=== PATIENT | male | born 1970 | race Caucasian/White ===

== ENCOUNTER 2025-04-05 13:32 | Inpatient (IN) | payer BC ==
[~2025-04-05 13:32] MED LIST: Iopamidol 370 76% 100 ML VIAL ONE
[2025-04-05] MEDS ORDERED: Sodium Bicarb 50 MEQ/50 ML Abboject 8.4% SYRINGE ONE (13:48)
[2025-04-05] MEDS ORDERED: Norepinephrine 8 MG/0.9% NS 250 ML ONE (13:58)
[2025-04-05 14:19] LABS: Hematocrit 45.0 % (42.0-52.0); Hemoglobin 14.2 g/dL (14.0-18.0); Mean Corpuscular Hemoglobin 30.9 pg (27.0-31.0); Mean Corpuscular Volume 97.8 fL (78.0-98.0); Platelet Count 223 10x3/uL (130-400); Red Blood Cell (RBC) Count 4.60 mill/uL (4.70-6.10); White Blood Cell (WBC) Count 27.18 10x3/uL (4.8-10.8)
[2025-04-05 14:26] LABS: ALT (SGPT) 113 U/L (Less than 45); AST (SGOT) 274 U/L (11-34); Albumin 2.3 g/dL (3.1-4.5); Alkaline Phosphatase 97 U/L (40-110); Anion Gap 25 mmol/L (10-20); BUN (Urea Nitrogen) 17 mg/dL (8.4-25.7); Bilirubin, Total 0.2 mg/dL (0.3-1.2); Calc. Creatinine Clearance 0 mL/min (70-130); Calcium 9.8 mg/dL (7.8-10.44); Carbon Dioxide 16 mmol/L (22-29); Chloride 109 mmol/L (98-107); Globulin 2.7 g/dL (2.4-3.5); Glucose 325 mg/dL (70-105); Potassium 3.9 mmol/L (3.5-5.1); Sodium 146 mmol/L (136-145)
[2025-04-05 14:28] LABS: INR-International Normal Ratio 2.1; PTT 83.3 sec (22.9-36.1); Prothrombin Time 23.9 sec (12.0-14.7)
[2025-04-05 14:36] LABS: Nucleated RBC (Manual Ct) 1 % (0); Platelet Adequacy Comment Platelets Normal; Polychromasia SLIGHT = 2-3 cells HPF (0-2); Smudge Cells 15.7 %
[2025-04-05 14:39] LABS: Actual Bicarbonate (HCO3a) 18.9 mEq/L (22-28); Analyzer IN Cardio ER; Base Excess (BEa) -15.3 mEq/L (-2.0 to +3.0); Calcium, Ionized (arterial) 1.40 mmol/L (1.12-1.30); Hematocrit-ABG 46 % (42.0-52.0); Hemoglobin (Hb) 15.6 g/dL (14.0-18.0); Potassium - ABG Lab 3.94 mmol/L (3.70-5.30)
[2025-04-05 14:41] LABS: CO2 Tension 89.4 mmHg (35.0-45.0); O2 Tension (PaO2), arterial 45.0 mmHg (80.0-100.0); pH, Arterial 6.943 (7.35-7.45)
[2025-04-05 14:51] LABS: CAUTI Indications for Culture Alt mental st,lethar; Glucose, Urine (Dipstick) Normal (Negative); Leukocyte 500 Leu/uL (Negative); Protein, Urine (Dipstick) 10 mg/dL (Neg-Trace); Specific Gravity, Urine 1.013 (1.002-1.036); WBC/HPF Greater than 50 HPF (0-3)
[2025-04-05 14:56] LABS: Bacteria/HPF 1+ HPF (None Seen); Sperm/HPF Rare HPF (None Seen)
[2025-04-05 14:57] LABS: Urine Culture Reflex Yes Yes
[2025-04-05] MEDS ORDERED: Cefepime 2 GM VIAL ONE (15:19)
[2025-04-05] MEDS ORDERED: metroNIDAZOLE 500 MG (100 mL) BAG ONE (15:34)
[2025-04-05] MEDS ORDERED: Vancomycin (BATCH) 2.5 GM in Premix 1 BAG IVPB SCH (15:45)
[2025-04-05] MEDS ORDERED: Vancomycin (BATCH) 2.5 GM/500 ML BAG ONE (15:45)
[2025-04-05] MEDS ORDERED: Acetaminophen 325 MG TAB PO PRN (15:56)
[2025-04-05] MEDS ORDERED: Ondansetron PF 4 MG/2 ML Vial IVP PRN (15:56)
[2025-04-05] MEDS ORDERED: Glucagon 1 MG/ML KIT IM PRN (15:56)
[2025-04-05] MEDS ORDERED: Nitroglycerin 0.4 MG TAB (25 Tab Bottle) SL PRN (15:56)
[2025-04-05] MEDS ORDERED: Dextrose 50% Abboject 50 ML SYRINGE SLOW IVP PRN (15:56)
[2025-04-05] MEDS ORDERED: Communication Order-Pharmacy FS SCH (15:59)
[2025-04-05] MEDS ORDERED: Electrolyte Replacement Protocol 1 EACH FS SCH (16:00)
[2025-04-05] MEDS ORDERED: Vasopressin In 0.9 % NaCl 100 ML ONE (16:18)
[2025-04-05] MEDS ORDERED: Potassium Chloride 20 MEQ in Premix 1 BAG IVPB PRN (16:30)
[2025-04-05] MEDS ORDERED: Propofol BOLUS 1,000 MG/100 ML VIAL IV PRN (16:30)
[2025-04-05] MEDS ORDERED: Magnesium 2 GM/50 ML(in water) 2 GM in Premix 1 BAG IVPB PRN (16:30)
[2025-04-05] MEDS ORDERED: PHOS-NAK 1 PKT PACK PO PRN (16:30)
[2025-04-05] MEDS ORDERED: Fentanyl BOLUS 100 ML IVPB PRN (16:30)
[2025-04-05] MEDS ORDERED: NOREPINEPHRINE 8 MG/250 ML-D5W 250 ML IVPB SCH (16:30)
[2025-04-05] MEDS: Vasopressin In 0.9 % NaCl 100 ML IV SCH (18:53)
[2025-04-05] MEDS: Norepinephrine 8 MG/0.9% NS 250 ML IVPB SCH (19:04)
[2025-04-05 19:49] VITALS: BMI 33.6
[2025-04-05] MEDS: Ventilator Sedation Protocol 1 EACH FS ONE (20:09)
[2025-04-05] MEDS: Hydrocortisone Sod Succ/PF 100 mg/2 ml Vial IVP SCH (20:10)
[2025-04-05] MEDS ORDERED: Heparin 10,000 UNITS/ 10 ML VIAL SLOW IVP SCH (20:30)
[2025-04-05] MEDS ORDERED: Pharmacy to Dose: VANC IVPB PRN (20:47)
[2025-04-05] MEDS ORDERED: Famotidine/PF 20 mg/2ml Vial SLOW IVP SCH (21:00)
[2025-04-05] MEDS ORDERED: Vancomycin 1 GM in Sodium Chloride 0.9% 250 ML 300 ML IVPB SCH (21:00)
[2025-04-05] MEDS: Glycopyrrolate 0.4 MG/ 2 ML VIAL SLOW IVP PRN (21:07)
[2025-04-06] MEDS ORDERED: Vancomycin 1.5 GM / NS 500 ML VIAL-2-BAG IVPB SCH (06:00)
[2025-04-06] MEDS ORDERED: Aspirin 81 mg Enteric Coated Tablet PO SCH (09:00)
[2025-04-06] MEDS ORDERED: Enoxaparin 40 MG (0.4 mL) SYRINGE SC SCH (09:00)
== END 2025-04-05 21:26 | disposition expired | DRG 871 ==
LOC: ERS 13:32 → ERHOLD 15:56 → CCU 18:14
PROVIDERS: ADMIT Family Medicine; ATTEND Family Medicine
PROC: 5A12012 Performance of Cardiac Output, Single, Manual (ICD-10-PCS; principal; 2025-04-05)
PROC: 0BH17EZ Insertion of Endotracheal Airway into Trachea, Via Natural or Artificial Opening (ICD-10-PCS; 2025-04-05)
PROC: 5A1935Z Respiratory Ventilation, Less than 24 Consecutive Hours (ICD-10-PCS; 2025-04-05)
PROC: 4A033R1 Measurement of Arterial Saturation, Peripheral, Percutaneous Approach (ICD-10-PCS; 2025-04-05)
PROC: 3E033XZ Introduction of Vasopressor into Peripheral Vein, Percutaneous Approach (ICD-10-PCS; 2025-04-05)
PROC: 3E03329 Introduction of Other Anti-infective into Peripheral Vein, Percutaneous Approach (ICD-10-PCS; 2025-04-05)
PROC: 02HV33Z Insertion of Infusion Device into Superior Vena Cava, Percutaneous Approach (ICD-10-PCS; 2025-04-05)
PROC: 0D9670Z Drainage of Stomach with Drainage Device, Via Natural or Artificial Opening (ICD-10-PCS; 2025-04-05)
PROC: 30233N1 Transfusion of Nonautologous Red Blood Cells into Peripheral Vein, Percutaneous Approach (ICD-10-PCS; 2025-04-05)
PROC: 0T9B70Z Drainage of Bladder with Drainage Device, Via Natural or Artificial Opening (ICD-10-PCS; 2025-04-05)
DX: A41.9 Sepsis, unspecified organism (principal); I21.A1 Myocardial infarction type 2; J96.01 Acute respiratory failure with hypoxia; J69.0 Pneumonitis due to inhalation of food and vomit; R65.21 Severe sepsis with septic shock; E87.20 Acidosis, unspecified; N39.0 Urinary tract infection, site not specified; S27.329A Contusion of lung, unspecified, initial encounter; N17.9 Acute kidney failure, unspecified; Z66 Do not resuscitate; I46.9 Cardiac arrest, cause unspecified; C61 Malignant neoplasm of prostate; Z98.890 Other specified postprocedural states; I12.9 Hypertensive chronic kidney disease with stage 1 through stage 4 chronic kidney disease, or unspecified chronic kidney disease; N18.9 Chronic kidney disease, unspecified; R74.01 Elevation of levels of liver transaminase levels; D72.829 Elevated white blood cell count, unspecified; Z82.49 Family history of ischemic heart disease and other diseases of the circulatory system; R73.9 Hyperglycemia, unspecified; H53.149 Visual discomfort, unspecified; R56.9 Unspecified convulsions; I49.01 Ventricular fibrillation
CPT/HCPCS: 36430; 36556; 51702; 70450; 71045; 71260; 74177; 80053; 81001; 82805; 83605; 83880; 84484; 85025; 85610; 85730; 86850; 86900; 86901; 87086; 92950; 93005; 94002; 94760; 96365; 96366; 96367; 96368; 96375; 99292; J0692; J1644; J2060; J2250; J2270; J3373; P9016; Q9967